=== PATIENT | male | born 1985 | race Caucasian/White ===

== ENCOUNTER 2018-02-07 04:36 | Emergency (ER) | payer SELFPAY ==
[2018-02-07 04:37] VITALS: PULSE 92; RESP 22; TEMP 37.2; O2SAT 95; BMI 48.8
--- NOTE | 2018-02-07 04:54 | EKG12_ITS ---
Test Reason : CP Blood Pressure : / mmHG Vent. Rate : 094 BPM Atrial Rate : 094 BPM P-R Int : 146 ms QRS Dur : 078 ms QT Int : 358 ms P-R-T Axes : 057 040 071 degrees QTc Int : 447 ms Normal sinus rhythm Normal ECG Confirmed by KATHARINA HUERTA, CEDRIC ([id number]), supervising film or videotape editor ALEXANDR JOHNSON ([id number]) on 02/09/2018 1:39:58 PM Referred By: LUZ Confirmed By:CEDRIC POSADAS MD
--- NOTE | 2018-02-07 04:54 | CT_ITS ---
STUDY: CTA CHEST REASON FOR EXAM: Male, 32 years old. Chest pain shortness of breath RADIATION DOSAGE (If Supplied By Facility): CTDIvol = ( 17.08 ) mGy, DLP = ( 965.24 ) mGycm TECHNIQUE: The examination was performed with the intravenous administration of 100ML ml of Isovue 370 contrast material. Post-processing of the angiographic images was performed, with multiplanar reformation and 3D reconstruction. Individualized dose optimization techniques were used for this CT. COMPARISON: None. FINDINGS: Normal enhancement of the main pulmonary artery and right and left pulmonary arteries. Normal enhancement of the bilateral peripheral pulmonary arteries. There is no demonstrated pulmonary embolism. Normal thoracic aorta and visualized great vessels. There is no demonstrated aortic dissection. Normal heart and pericardium. Normal mediastinum. Normal hilar regions. Normal visualized trachea and bronchi. The lungs are well expanded. Normal pulmonary parenchyma. Normal pleura. Normal chest wall structures. Normal osseous structures. Normal visualized upper abdomen. CT/CTA Chest W/WO Contrast IMPRESSION: Normal CTA chest examination, without a demonstrated pulmonary embolism or arterial dissection. Electronically Signed: Oh Núñez MD at 6:10 EST Tel , Service support ,
[2018-02-07 05:17] LABS: Absolute Lymphocyte Count 2.81 X10^3/ul (0.83-4.51); Absolute Neutrophil Count 4.5 X10^3/uL (2.0-7.7); Basophil# 0.04 X10^3/uL; Basophil% 0.5 % (0-1); Eosinophil# 0.12 X10^3/uL; Eosinophils% 1.4 % (0-5); Hematocrit 43.7 % (40-54); Hemoglobin 14.4 g/dl (13.0-16.5); Lymphocyte # 2.81 X10^3/ul (4.0); Lymphocyte % 33.7 % (19-41); Mean Corpuscular Hgb 28.9 pg (27.0-32.0); Mean Corpuscular Volume 87.6 fL (80-94); Mean Platelet Vol. 9.4 fl (6.2-12.0); Monocyte# 0.83 X10^3/uL; Neutrophil # 4.52 X10^3/uL (2.7-7.7); Neutrophil % 54.3 % (47-70); Platelet Count 350 K/mm3 (150-450); RBC Distribution Width CV 13.8 % (11.6-14.6); RBC Distribution Width SD 44.1 fl (35.1-43.9); Red Blood Count 4.99 M/mm3 (4.6-6.2); White Blood Count 8.3 K/mm3 (4.4-11.0)
[2018-02-07 05:21] LABS: POSITIVE COUNT NO; POSITIVE DIFFERENTIAL NO; POSITIVE MORPHOLOGY NO
[2018-02-07 05:31] VITALS: O2SAT 96
[2018-02-07] MEDS: 0.9% Normal Saline 1,000 ML 1000 ML IV (05:31)
--- NOTE | 2018-02-07 05:39 | ED.VISSUMM ---
- ER Visit Summary Date of Service: 02/07/18 Chief Complaint: Chest pain History of Present Illness: The patient is a 32 M with no primary care physician. He reports that he has diffuse chest pain began approximate 1 hour ago while he was at rest. Is continuous sharp pain that waxes and wanes. It is 3 out of 10 currently and 7 out of 10 at worst. Reports that it is relieved by exertion and worsened by deep breaths. Does report he feels mildly short of breath. Denies any associated nausea, vomiting, or diaphoresis. Is to report he feels lightheaded with this. Patient denies any personal or family history of DVT. No recent travel. No ankle swelling or calf pain. He denies any chest pain or change in dyspnea exertion in the past month. Does report that his father was recently treated for an aortic dissection. No family history of Marfan's or other genetic anomalies that he is aware of. Physical Examination: Vitals: Stable. Afebrile. General: Well-nourished and well-developed. Patient does not have a marfanoid appearance. Head: Normocephalic atraumatic. Neck: Supple, no lymphadenopathy. No JVD. Nontender. Cardiovascular: Regular rate and rhythm. No murmurs. Respiratory: No respiratory distress. Clear to auscultation bilaterally. Abdominal: Soft, nontender, nondistended, normal bowel sounds. No guarding, rebound, or peritoneal signs. Back: Nontender. Extremities: Nontender, no edema. Skin: Normal color, no rash. Neurologic: Alert and oriented ?3. Cranial nerves II through XII are intact. Normal strength and sensation. Psych: Normal affect. Test Results: EKG is sinus at [address] changes. Is unchanged from his prior EKG. CBC is normal. Chem-7 is remarkable for a glucose of 133 and calcium of 8.4. Troponin is negative. CTA of the chest shows no PE or dissection. Emergency Department Course and Treatment: Patient had an IV placed. He was given a liter of normal saline. He is resting comfortably. Treatment Plan: Patient will be discharged instructions follow-up Dr. Waggoner within 1 week for another exam. Return to the emergency department for any worsening symptoms. Disposition: To home in improved and stable condition. Impression: 1. Atypical chest pain. 2. VALERIA score of 0. This note was generated with Dragon dictation software. It may contain incorrect words, spelling, and punctuation that were not noted in review of the chart prior to signing ED Disposition - Plan for ED Patient: Chief Complaint: Chest Pain Instructions: ED Chest Pain Atypical Unkn Cause Referrals: Jacqueline Waggoner DO [STAFF PHYSICIAN] - 1 Week
[2018-02-07 05:45] LABS: Anion Gap 11 (5-15); BUN 16 mg/dL (7-18); BUN/Creat Ratio 13.7 RATIO (10-20); Calcium,Total 8.4 mg/dL (8.5-10.1); Chloride 106 mmol/L (98-107); Creatinine, Serum 1.17 mg/dL (0.70-1.30); EST Glomerular Filtration Rate 76 mL/min (>60); Est Glom Filt Rate - Afr Amer 92 mL/min (>60); Estimated Creatinine Clearance 94.75 ml/min; Glucose 133 mg/dL (74-106); Potassium 4.4 mmol/L (3.5-5.1); Sodium Level 142 mmol/L (136-145)
[2018-02-07 06:24] VITALS: BP 173/90; PULSE 83; RESP 22; O2SAT 97
--- NOTE | 2018-02-07 06:26 | ED.RN ---
BP WAS 149/84 ON TRIAGE ADMISSION BUT WAS NOT PUT IN THE TRIAGE.
--- NOTE | 2018-02-07 06:33 | ED.RN ---
DR. ESCOBAR AWARE OF PATIENT'S BP OF 173/90 ON DISCHARGE. HE SAID PATIENT NEEDS TO FOLLOW UP WITH DR. DE JESUS IN ONE WEEK TO HAVE THIS RECHECKED.
== END 2018-02-07 06:34 | disposition home or self-care (01) ==
LOC: ED 05:03
PROVIDERS: Emergency Provider Emergency Medicine
DX: R07.89 Other chest pain (principal); R06.02 Shortness of breath; R42 Dizziness and giddiness
CPT/HCPCS: 71275; 80048; 84484; 85025; 93005; 96360; 99285; J7030; Q9967; A4216

== ENCOUNTER → 2018-11-08 10:51 | Outpatient (REF) | payer SELFPAY | LOC: CVS 10:51 | PROVIDERS: Referring Provider Nurse Practitioner Family | DX: I49.9 Cardiac arrhythmia, unspecified (principal) | CPT/HCPCS: 93270 ==

== ENCOUNTER → 2020-01-09 09:03 | Outpatient (CLI) | payer SELFPAY ==
[2020-01-09 09:26] LABS: Hematocrit 48.3 % (40-54); Hemoglobin 15.9 g/dL (13.0-16.5); Mean Corp Hgb Conc 32.9 g/dL (32-36); Mean Corpuscular Volume 91.1 fL (80-94); Mean Platelet Vol. 9.3 fl (6.2-12.0); Platelet Count 405 K/mm3 (150-450); RBC Distribution Width CV 13.1 % (11.6-14.6); RBC Distribution Width SD 43.1 fl (35.1-43.9); White Blood Count 9.4 K/mm3 (4.4-11.0)
[2020-01-09 09:47] LABS: AST(SGOT) 43 U/L (15-37); Alanine Aminotransfer ALT/SGPT 129 U/L (16-61); Alkaline Phosphatase 94 U/L (45-117); Anion Gap 6 (5-15); BUN 14 mg/dL (7-18); BUN/Creat Ratio 12.2 RATIO (10-20); Bilirubin, Direct 0.22 mg/dL (0.00-0.30); Chloride 101 mmol/L (98-107); Cholesterol 170 mg/dL (200); Creatinine, Serum 1.15 mg/dL (0.70-1.30); EST Glomerular Filtration Rate 76 mL/min (>60); Est Glom Filt Rate - Afr Amer 92 mL/min (>60); Globulin 4.4 g/dL (2.2-4.2); Glucose 99 mg/dL (74-106); High Density Lipoprotein 32 mg/dL; Potassium 3.6 mmol/L (3.5-5.1); Protein, Total 8.4 g/dL (6.4-8.2); Sodium Level 136 mmol/L (136-145); Thyroid Stim Hormone (TSH) 1.69 uIU/mL (0.358-3.74); Triglycerides 110 mg/dL; Very Low Density Lipoprotein 22 mg/dL (5-40)
[2020-01-09 10:48] LABS: Hemoglobin A1c 5.8 % (3.8-5.6)
== END ==
DX: I10 Essential (primary) hypertension (principal); E78.5 Hyperlipidemia, unspecified; K76.0 Fatty (change of) liver, not elsewhere classified; R73.03 Prediabetes
CPT/HCPCS: 36415; 80048; 80061; 80076; 83036; 84443; 85027

== ENCOUNTER 2020-04-29 22:51 | Emergency (ER) | payer OTHER, SELFPAY ==
[2020-04-29 22:52] VITALS: BP 164/100; PULSE 81; RESP 16; TEMP 35.9; O2SAT 96; BMI 43.2
--- NOTE | 2020-04-29 23:35 | EKG12_ITS ---
Test Reason : DIZZY Blood Pressure : / mmHG Vent. Rate : 079 BPM Atrial Rate : 079 BPM P-R Int : 170 ms QRS Dur : 082 ms QT Int : 382 ms P-R-T Axes : 053 024 055 degrees QTc Int : 438 ms Normal sinus rhythm Normal ECG Confirmed by CARL HUERTA, SARA ([id number]), publication editor BERTA GRAF ([id number]) on 04/30/2020 1:57:05 PM Referred By: ADELINE Confirmed By:SARA HENRY MD
--- NOTE | 2020-04-29 23:35 | ED.DCSUM_ITS ---
History of Present Illness Chief Complaint: Dizziness Informant: Patient Narrative: Has a history of hypertension and obesity. Presents tonight with left-sided chest discomfort. This is chronic however for the last year and a half. He describes a aching pinpoint left chest with some radiation to the left shoulder. He has been seeing a doctor for this. Has had a negative work-up. Has had ER visits in the remote past with negative CAT scans for chest pain as well. Has never had a stress test or heart cath. No home treatment. Woke up this evening as he has been dealing with insomnia for 20 years. He has not slept in 24 hours. He felt dizzy when he woke up and slightly disoriented. This is slowly subsequently went away. He denies any vertigo. He stated in the last week he has only been sleeping 2 to 3 hours per night. Has not take anything for this in the past. He is on atenolol for history of hypertension. Current severity mild Past Medical History - Allergies and Home Meds Allergies/Adverse Reactions: Allergies No Known Allergies Allergy (Verified 04/29/20 22:51) [facility] - Prior records reviewed: Yes Past Medical History: - - Hypertension, obesity, insomnia Surgical History: - - Reviewed Smoking Status: Never smoker Alcohol: None Drugs: None Review of Systems General: Denies: Chills, Fever, Sweats Eyes: Denies: Visual changes - bilaterally, Diplopia ENT: Denies: Rhinorrhea, Sore throat Cardiovascular: Reports: Chest pain - Chronic chest pain. Denies: Palpitations Respiratory: Denies: Dyspnea, Cough, Dyspnea on exertion Gastrointestinal: Denies: Abdominal pain, Nausea, Vomiting, Diarrhea, Melena, Hematochezia Genitourinary: Denies: Dysuria, Hematuria, Frequency Musculoskeletal: Reports: Extremity Pain - See HPI. Denies: Back pain Skin: Denies: Rash, Wounds Neurological: Reports: - - See HPI. Denies: Headache, Weakness, Numbness Physical Exam Vital Signs/Narrative: Vital Signs Temp Pulse Resp BP Pulse Ox 04/29/20 22:52 96.7 F L 81 16 164/100 H 96 General: Well nourished, Well developed, No Acute Distress Head: Normocephalic, Atraumatic Eyes: Perrl, EOMI ENT: Moist mucous membranes, No rhinorrhea Neck: Supple, Nontender Cardiovascular: Regular rate, Regular rhythm, No murmurs Respiratory: No distress, CTA bilaterally, Chest nontender Abdomen: Soft, Nontender, Nondistended, Normal bowel sounds Back: Nontender, Normal Inspection Extremities: Nontender, No edema Skin: Normal color, No rash Neurological: Alert, Oriented x3, Cranial nerves II-XII grossly intact, Normal Strength, Normal Sensation Psychological: Normal affect, Normal Mood Diagnostic/Tx/Re-eval - Medical Decision Making . Obtained upon arrival shows sinus rhythm at a rate of 79. No acute ischemia or arrhythmia. Unchanged from her EKG. Patient given dose of Toradol and IV fluids. Lab work and chest x-ray obtained. Lab work unremarkable including CBC BMP troponin. Chest x-ray my interpretation shows nothing acute. Heart and lungs normal. No infiltrates. No wide mediastinum. On reevaluation patient resting comfortably. This appears to be a chronic issue. I feel some of these dizziness symptoms are related to insomnia. We will try to get sleep. To follow-up as an outpatient. Chest pain has chronic ED Disposition - Plan for ED Patient: Disposition: Home or Assisted Living Diagnosis: Lightheadedness, Insomnia, Chronic chest pain Instructions: ED Chest Pain, Noncardiac, ED Dizziness, Uncertain Cause Referrals: [facility],Kiya Butler [Primary Care Provider] -
--- NOTE | 2020-04-29 23:35 | RAD_ITS ---
STUDY: X-RAY CHEST REASON FOR EXAM: Male, 34 years old. chest pain TECHNIQUE: Single AP portable view of the chest. COMPARISON: 09/16/2015. FINDINGS: The lungs are clear and expanded. There is no demonstrated pleural abnormality. Normal size heart. Normal mediastinum and lili. Normal visualized pulmonary arteries. Normal visualized aortic arch and descending thoracic aorta. There are diffuse degenerative changes of the visualized thoracic spine. Sequela of old trauma of the lateral aspect of the right clavicle, stable in the interval. There is no demonstrated abnormality of the visualized soft tissue structures of the upper abdomen. RAD/Chest 1 View (Portable) IMPRESSION: No acute cardiopulmonary disease. Electronically Signed: Barbara Bell MD at 0:20 EDT , Service support ,
[2020-04-29] MEDS: Ketorolac 15 MG/ML Vial IV (23:53)
[2020-04-29 23:54] LABS: Absolute Lymphocyte Count 1.73 X10^3/uL (0.83-4.51); Basophil# 0.06 X10^3/uL; Basophil% 0.8 % (0-1); Eosinophil# 0.06 X10^3/uL; Eosinophils% 0.8 % (0-5); Hematocrit 46.7 % (40-54); Hemoglobin 15.4 g/dL (13.0-16.5); Lymphocyte # 1.73 X10^3/ul (4.0); Lymphocyte % 22.9 % (19-41); Mean Corpuscular Hgb 29.7 pg (27.0-32.0); Mean Corpuscular Volume 90.2 fL (80-94); Mean Platelet Vol. 9.2 fl (6.2-12.0); Monocyte# 0.74 X10^3/uL; Monocyte% 9.8 % (0-10); NRBC Flagged by Analyzer 0 % (0-5); Neutrophil # 4.97 X10^3/uL (2.7-7.7); Neutrophil % 65.6 % (47-70); Platelet Count 353 K/mm3 (150-450); RBC Distribution Width CV 13.2 % (11.6-14.6); RBC Distribution Width SD 43.8 fl (35.1-43.9); Red Blood Count 5.18 M/mm3 (4.6-6.2); White Blood Count 7.6 K/mm3 (4.4-11.0)
[2020-04-30] MEDS: 0.9% Normal Saline 1,000 ML 250 ML IV (00:10)
[2020-04-30 00:12] LABS: Anion Gap 4 (5-15); BUN 12 mg/dL (7-18); BUN/Creat Ratio 11.8 RATIO (10-20); Calcium,Total 8.8 mg/dL (8.5-10.1); Chloride 104 mmol/L (98-107); Creatinine, Serum 1.02 mg/dL (0.70-1.30); EST Glomerular Filtration Rate 88 mL/min (>60); Est Glom Filt Rate - Afr Amer 106 mL/min (>60); Estimated Creatinine Clearance 106.63 ml/min; Glucose 127 mg/dL (74-106); Sodium Level 140 mmol/L (136-145)
[2020-04-30 00:53] VITALS: BP 135/81; PULSE 67; RESP 16; O2SAT 97
== END 2020-04-30 01:04 | disposition home or self-care (01) ==
PROVIDERS: Emergency Provider Emergency Medicine
DX: R42 Dizziness and giddiness (principal); G47.00 Insomnia, unspecified; R07.9 Chest pain, unspecified; G89.29 Other chronic pain; I10 Essential (primary) hypertension; E66.9 Obesity, unspecified
CPT/HCPCS: 71045; 80048; 84484; 85025; 93005; 96361; 96374; 99284; J7030; A4216